=== PATIENT | female | born 1980 | race Hispanic/Latino ===

== ENCOUNTER 2020-02-01 12:48 | Emergency (ER) | payer OTHER, SELFPAY ==
[2020-02-01 13:02] VITALS: BP 175/119; PULSE 114; RESP 22; TEMP 36.3; O2SAT 100
[2020-02-01 15:28] VITALS: BP 187/112; PULSE 90; RESP 17; O2SAT 99
[2020-02-01] MEDS: LIDO 1%/SOD BICARB 8.4% (10ML) 10 ML SYRINGE INJ (15:28)
--- NOTE | 2020-02-01 15:31 | PC.NURSE ---
Will defer to profider assessment, wound not visualized by this RN
--- NOTE | 2020-02-01 20:13 | ED_ITS ---
HPI - Skin/Abscess/Foreign Bdy <MONIKA Mcmillan - Last Filed: 02/01/20 20:17> General Chief complaint: Skin/Abscess/Foreign Body Stated complaint: bump on left shoulder, with drainage Time Seen by Provider: 02/01/20 13:34 Source: patient Mode of arrival: Ambulatory Limitations: no limitations History of Present Illness HPI narrative: The patient is a 40-year-old female current some day smoker with history of IV drug use who presents with a chief complaint of an abscess. She states that it is on her left shoulder, she felt drain underneath her skin. She denies any fevers nausea vomiting or diarrhea. She denies any muscle aches or chills she states she does have a history of abscesses, mostly when she was using IV drugs. Related Data Previous Rx's Medication Instructions Recorded cephalexin 500 mg PO TID #30 cap 02/01/20 sulfamethoxazole-trimethoprim 1 tab PO BID #20 tab 02/01/20 [Bactrim DS] Review of Systems <MONIKA Mcmillan - Last Filed: 02/01/20 20:17> Review of Systems Narrative: GENERAL: Denies chills, fatigue, malaise, fever, sweats. HEENT: Denies sinus pain, ear pain, sore throat, difficulty swallowing, dizziness. RESPIRATORY: Denies dyspnea, cough, wheezing, hemoptysis, sputum. CARDIOVASCULAR: Denies chest pain, palpitations, orthopnea, edema, GASTROINTESTINAL: Denies nausea, vomiting, abdominal pain, diarrhea, constipation, melena. : Denies dysuria, frequency, incontinence, hematuria, urinary retention. MUSCULOSKELETAL: denies weakness, joint pain, or bony pain SKIN: See HPI NEUROLOGIC: Denies weakness, headache, numbness, change in speech, confusion, seizures, incoordination. PSYCHIATRIC: No concerning psychosocial issues. 12 point review of systems is negative except for those stated above 12 point review of systems is negative except for those stated above Patient History <MONIKA Mcmillan - Last Filed: 02/01/20 20:17> Medical History (Updated 02/01/20 @ 20:14 by MONIKA Mcmillan) Hypertension (Acute) Social History Smoking Status: Current some day smoker Smoking Status: Current some day smoker Exam <ANGELA Mcmillan-BC - Last Filed: 02/01/20 20:17> Narrative Exam Narrative: GENERAL: This is a well-nourished, well-developed patient, in no acute distress HEAD: Atraumatic. Normocephalic. No temporal or scalp tenderness. EYES: Pupils equal round and reactive. Extraocular motions intact. No scleral icterus. No injection or drainage. ENT: Nose without bleeding, purulent drainage or septal hematoma. Throat without erythema, tonsillar hypertrophy or exudate. Uvula midline. Airway patent. NECK: Trachea midline. No JVD or lymphadenopathy. Supple, nontender, no meningeal signs. CARDIOVASCULAR: Regular rate and rhythm RESPIRATORY: Clear to auscultation. Breath sounds equal bilaterally. No wheezes, rales, or rhonchi. No cough. No increased respiratory effort. No accessory muscle use. GASTROINTESTINAL: Abdomen soft, non-tender, nondistended. No hepato- splenomegaly, or palpable masses. No guarding. EXTREMITIES: Skin exam as noted. Positive radial pulse left shoulder. BACK: Nontender without deformity or crepitance. No flank tenderness. NEURO: AOx3. SKIN: 8 x 6 cm of erythema on lateral left shoulder, 2 cm palpable fluctuance, no pustule. Initial Vital Signs Initial Vital Signs: Vital Signs Temperature 97.4 F L 02/01/20 13:02 Pulse Rate 114 H 02/01/20 13:02 Respiratory Rate 02/01/20 13:02 Blood Pressure 175/119 H 02/01/20 13:02 Pulse Oximetry 100 02/01/20 13:02 <Luz Maria Woo MD - Last Filed: 02/02/20 11:01> Initial Vital Signs Initial Vital Signs: Vital Signs Temperature 97.4 F L 02/01/20 13:02 Pulse Rate 114 H 02/01/20 13:02 Respiratory Rate 02/01/20 13:02 Blood Pressure 175/119 H 02/01/20 13:02 Pulse Oximetry 100 02/01/20 13:02 Procedures <JULIUS McmillanBC - Last Filed: 02/01/20 20:17> Abscess I/D I&D #1: Site: upper extremity Side (if applicable): left Local Anesthetic: lidocaine 1% and with bicarb Amount of anesthesia used (mL): 6 Technique: incised with #11 blade (Cleansed with Hibiclens) Packing used?: iodoform Scores <MONIKA Mcmillan - Last Filed: 02/01/20 20:17> [facility] [place] coma scale eye opening: Spontaneous [place] coma scale verbal response: Orientated [place] coma scale motor response: Obey commands [place] coma scale total score: 15 Course <MONIKA Mcmillan - Last Filed: 02/01/20 20:17> Orders Ordered: Discontinued Medications Sodium Chloride (Normal Saline 0.9%) 1,000 mls @ 1,000 mls/hr IV BOLUS ONE Stop: 02/01/20 14:24 Last Admin: 02/01/20 14:12 Dose: Not Given Documented by: SIRENA Lidocaine/Sodium Bicarbonate (Buffered Lidocaine 10 Ml Syr) 10 ml INJ NOW ONE Stop: 02/01/20 13:57 Last Admin: 02/01/20 15:28 Dose: 10 ml Documented by: SIRENA Vital Signs Vital signs: Vital Signs - 8 hr 02/01/20 13:02 02/01/20 15:28 Temperature 97.4 F L Pulse Rate 114 H 90 Respiratory Rate 22 17 Blood Pressure 175/119 H 187/112 H Pulse Oximetry 100 99 <Luz aMria Woo MD - Last Filed: 02/02/20 11:01> Orders Ordered: Discontinued Medications Sodium Chloride (Normal Saline 0.9%) 1,000 mls @ 1,000 mls/hr IV BOLUS ONE Stop: 02/01/20 14:24 Last Admin: 02/01/20 14:12 Dose: Not Given Documented by: SIRENA Lidocaine/Sodium Bicarbonate (Buffered Lidocaine 10 Ml Syr) 10 ml INJ NOW ONE Stop: 02/01/20 13:57 Last Admin: 02/01/20 15:28 Dose: 10 ml Documented by: SIRENA Vital Signs Vital signs: Vital Signs - 8 hr 02/01/20 13:02 02/01/20 15:28 Temperature 97.4 F L Pulse Rate 114 H 90 Respiratory Rate 22 17 Blood Pressure 175/119 H 187/112 H Pulse Oximetry 100 99 MDM - Skin/Abscess/Foreign Bdy <MONIKA Mcmillan - Last Filed: 02/01/20 20:17> [facility] Narrative Medical decision making narrative: The patient is a 40-year-old female who presents with a chief complaint of an abscess. She received an incision and drainage and tolerated well. Wound culture was taken. Given that she has a history of IV drug use, patient was placed on Keflex and Bactrim. No signs of systemic infection, is afebrile and well-appearing in the emergency department. She denies any vomiting, fevers etcetera. I discussed at length that these are strict return precautions. 2 cm of packing use to help drain. Encouraged follow-up with provider in approximately 48 hours to ensure that wound improvement is noted, removal of packing. Discussed at length monitoring for fevers, inability keep down fluids, signs of systemic infection etcetera. Patient has no questions or concerns upon discharge and states understanding return precautions as well as follow-up care. Discharge Plan Departure Patient Disposition: Home Clinical Impression: Abscess of skin or subcutaneous tissue Qualifiers: Site of cutaneous abscess: extremity Site of cutaneous abscess of extremity: upper extremity Laterality: left Qualified Code(s): L02.414 - Cutaneous abscess of left upper limb Discharge Date/Time: 02/01/20 15:31 Instructions: DI for Skin Abscess Activity Restrictions/Additional Instructions: Thank you for trusting us with your care today. Today we drained an abscess. Please follow-up with primary care provider in the next 48 hours or so for re-evaluation. I have given contact information the [facility] natural resources professor, who can help you identify a primary care provider I sent 2 antibiotics to [facility] in [place]. Please take it with probiotic or yogurt to help prevent antibiotic associated diarrhea. Please monitor for any fevers, vomiting, signs of systemic illness and be evaluated if these occur. We have completed a wound culture. We will call you in the next 48-72 hours if we have to change your antibiotics. Please come back to the emergency department for any acute concerns. Prescriptions: New cephalexin 500 mg capsule 500 mg PO TID Qty: 30 RF: 0 sulfamethoxazole-trimethoprim [Bactrim DS] 800-160 mg tablet 1 tab PO BID Qty: 20 RF: 0 Referrals: [facility] [Outside] <Luz Maria Woo MD - Last Filed: 02/02/20 11:01> Cosign ED Attending Cosignature Attestation: I was immediately available in the department for consultation throughout this patient's visit. I agree with documentation as above. Luz Maria Woo MD
== END 2020-02-01 15:31 | disposition home or self-care (01) ==
PROVIDERS: Emergency Provider Nurse Practitioner Family
DX: L02.414 Cutaneous abscess of left upper limb (principal)
CPT/HCPCS: 10060; 87070; 87075; 87077; 87147; 87186; 87205; 93005; 99283